=== PATIENT | male | born 1995 | race Caucasian/White ===

== ENCOUNTER 2018-03-12 18:19 | Emergency (ER) | payer SELFPAY ==
[~2018-03-12] VITALS: Ht 180.3 cm; Wt 110.7 kg
[2018-03-12 18:35] VITALS: BP 138/71; PULSE 89; RESP 16; TEMP 102.3; O2SAT 96
[2018-03-12] MEDS ORDERED: AMOX500T PO (19:29)
--- NOTE | 2018-03-12 19:29 | PD ---
HPI Chief Complaint: ENT Complaint Time Seen by Provider: 19:03 Travel History International Travel<30 days: No Contact w/Intl Traveler<30days: No Traveled to known affect area: No History of Present Illness HPI 22-year-old male here with fever and sore throat for several days. He believes he has strep pharyngitis. Denies difficulty swallowing or change in voice. Symptom severity is moderate. No aggravating or alleviating factors. PFSH Past Medical History Medical History: Denies Significant Hx Tetanus Vaccination: Unknown Influenza Vaccination: No Past Surgical History Surgical History: No Previous Surgery Oral Surgery: Yes (wisdom teeth) Social History Alcohol Use: Yes (occas. beer or mix drinks) Tobacco Use: No Substance Use: Yes (smokes "weed') Allergies-Medications (Allergen,Severity, Reaction): Coded Allergies: No Known Allergies (Unverified , 03/12/18) Reported Meds & Prescriptions Reported Meds & Active Scripts Active Amoxicillin 500 Mg Tab 500 Mg PO BID 10 Days Review of Systems Except as stated in HPI: all other systems reviewed are Neg General / Constitutional: Positive: Fever Eyes: No: Visual changes HENT: Positive: Sore Throat, No: Headaches Cardiovascular: No: Chest Pain or Discomfort Physical Exam Narrative GENERAL: Alert and well-appearing 22-year-old male SKIN: Warm and dry. No rash HEAD: Normocephalic. EYES: No injection or drainage. ENT: Notable pharyngeal erythema with mild tonsillar hypertrophy and scant exudate. Uvula is midline. Airways patent. Normal phonation. NECK: Supple, trachea midline. mild submandibular lymphadenopathy. No meningismus. CARDIOVASCULAR: Regular rate and rhythm without murmurs, gallops, or rubs. RESPIRATORY: Breath sounds equal bilaterally. No accessory muscle use. GASTROINTESTINAL: Abdomen soft, non-tender, nondistended. MUSCULOSKELETAL: No cyanosis, or edema. BACK: No CVA tenderness. Data Data Last Documented VS Vital Signs Date Time Temp Pulse Resp B/P (MAP) Pulse Ox O2 Delivery O2 Flow Rate FiO2 03/12/18 20:07 03/12/18 20:03 100.4 86 16 97 Room Air Orders Orders Acetaminophen (Tylenol) (03/12/18 19:30) Ed Discharge Order (03/12/18 20:03) MDM Medical Decision Making Medical Screen Exam Complete: Yes Emergency Medical Condition: Yes Differential Diagnosis Strep pharyngitis, viral pharyngitis, mononucleosis Narrative Course 22-year-old male here with pharyngitis and fever. He was medicated with Tylenol. Fever reduced. Diagnosis Primary Impression: Pharyngitis Qualified Codes: J02.9 - Acute pharyngitis, unspecified Referrals: Primary Care Physician Additional Instructions: Antibiotics as directed. Tylenol and ibuprofen for fever. Drink plenty of fluid. Follow-up the primary doctor. Return if you have new or worsening symptoms. Scripts Amoxicillin (Amoxicillin) 500 Mg Tab 500 MG PO BID for Infection for 10 Days, #20 TAB 0 Refills Prov: Pat Lucero 03/12/18 Disposition: 01 DISCHARGE HOME Condition: Stable Pat Lcuero Mar 12, 2018 19:29
[2018-03-12] MEDS ORDERED: ACETAMINOPHEN 500 MG CPLT PO ONE (19:30)
[2018-03-12 20:03] VITALS: BP 140/71; PULSE 86; RESP 16; TEMP 100.4; O2SAT 97
== END 2018-03-12 20:07 | disposition home or self-care (01) ==
LOC: PHEFT 18:19
DX: J02.9 Acute pharyngitis, unspecified (principal); F12.90 Cannabis use, unspecified, uncomplicated
CPT/HCPCS: 99283